=== PATIENT | female | born 1980 | race Caucasian/White ===

== ENCOUNTER 2020-12-09 19:41 | Inpatient (IN) | payer OTHER ==
[2020-12-09] MEDS: fentaNYL (PF) 50 MCG/ML 2 ML AMP IVP PRN ×2 (19:48→20:40)
[2020-12-09 19:54] LABS: Glucose,Whole Blood 150 mg/dL (75-99)
[2020-12-09] MEDS ORDERED: fentaNYL (PF) 50 MCG/ML 2 ML AMP IVP STA (19:59)
[2020-12-09 20:12] LABS: Anisocytosis Slight; Basophils # (A) 0.1 k/uL (0-0.2); Basophils % (A) 2 %; Eosinophils # (A) 0.1 k/uL (0-0.7); Eosinophils % (A) 2 %; HCT 41.7 % (34.0-46.0); HGB 13.8 gm/dL (11.4-16.0); Lymphocytes # (A) 1.3 k/uL (1.0-4.8); Lymphocytes % (A) 27 %; MCH 38.5 pg (25.0-35.0); MCHC 33.2 g/dL (31.0-37.0); MCV 115.8 fL (80.0-100.0); Macrocytosis Marked; Mean Platelet Volume 7.1; Monocytes # (A) 0.3 k/uL (0-1.0); Monocytes % (A) 7 %; Neutrophils % (A) 61 %; Platelet Count 241 k/uL (150-450); RDW 17.6 % (11.5-15.5); WBC 4.9 k/uL (3.8-10.6)
[2020-12-09 20:22] LABS: ALT 157 U/L (4-34); AST 473 U/L (14-36); African American GFR (CKD) >90 (>60 ml/min/1.73 sqM); Albumin 4.6 g/dL (3.5-5.0); Alkaline Phosphatase 155 U/L (38-126); Anion Gap 15 mmol/L; Blood Urea Nitrogen 7 mg/dL (7-17); Calcium 10.4 mg/dL (8.4-10.2); Carbon Dioxide 24 mmol/L (22-30); Chloride 100 mmol/L (98-107); Glucose 116 mg/dL (74-99); Non-African American GFR(CKD) >90 (>60 ml/min/1.73 sqM); Potassium 3.5 mmol/L (3.5-5.1); Sodium 139 mmol/L (137-145); Total Protein 7.3 g/dL (6.3-8.2)
[2020-12-09 20:24] LABS: Alcohol 138 mg/dL
[2020-12-09 20:28] LABS: Partial Thromboplastin Time 23.1 sec (22.0-30.0); Prothrombin Time 10.4 sec (9.0-12.0)
[2020-12-09 20:50] LABS: HCG,Qualitative Serum Not Detected
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
[2020-12-09] MEDS ORDERED: SODIUM CHLORIDE 0.9% 1,000 ML IV STA (21:36)
[2020-12-09] MEDS ORDERED: MORPHINE SULFATE 4 MG/ML SYRINGE IVP STA (21:36)
[2020-12-09] MEDS ORDERED: IBUPROFEN 400 MG TAB PO PRN (22:03)
[2020-12-09] MEDS ORDERED: ACETAMINOPHEN TAB 325 MG TAB PO PRN (22:03)
[2020-12-09] MEDS ORDERED: NALOXONE 0.4 MG/ML 1 ML VIAL IV PRN (22:03)
[2020-12-09] MEDS ORDERED: ONDANSETRON 4 MG/2 ML VIAL IVP PRN (22:03)
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
[2020-12-09] MEDS ORDERED: LORazepam 2 MG/ML INJ IV PRN ×3 (22:22)
[2020-12-09] MEDS ORDERED: THIAMINE 100 MG/ML 2 ML VIAL IM STA (22:22)
[2020-12-09 22:53] LABS: Appearance,Urine Cloudy (Clear); Bilirubin,Urine Negative (Negative); Blood,Urine Negative (Negative); Color,Urine Yellow; Glucose,Urine (UA) Negative (Negative); Ketones,Urine Negative (Negative); Leukocyte Esterase,Urine Negative (Negative); Mucus,Urine Rare /hpf; Nitrite,Urine Positive (Negative); PH, Urine 7.5 (5.0-8.0); Protein,Urine Trace (Negative); RBC,Urine 10 /hpf (0-5); Squamous Epithelial Cell,Urine 32 /hpf (0-4); Urobilinogen,Urine <2.0 mg/dL (<2.0); WBC,Urine 4 /hpf (0-5)
[2020-12-09 23:02] LABS: Amphetamine Screen,Urine Detected (NotDetected); Barbiturate Screen,Urine Not Detected (NotDetected); Benzodiazepines Screen,Urine Not Detected (NotDetected); Cocaine Screen,Urine Not Detected (NotDetected); Methadone Screen, Urine Not Detected (NotDetected); Opiate Screen,Urine Detected (NotDetected); Oxycodone Screen, Urine Not Detected (NotDetected); Phencyclidine Screen,Urine Not Detected (NotDetected); Tricyclic Antidepressant,Urine Not Detected (NotDetected); Urn Cannabinoid Scrn Detected (NotDetected)
[2020-12-09 23:06] LABS: Specific Gravity,Urine >1.050 (1.001-1.035)
[2020-12-09] MEDS: THIAMINE 100 MG TAB PO SCH (23:22)
[2020-12-10] MEDS ORDERED: NICOTINE 14MG/24HR PATCH TRANSDERM ONE (00:44)
[2020-12-10] MEDS: HEPARIN SODIUM,PORCINE/PF 5,000 UNIT/0.5 ML SYRINGE SQ SCH ×3 (00:46→16:47)
[2020-12-10] MEDS: MORPHINE SULFATE 4 MG/ML SYRINGE IV PRN ×4 (00:46→16:29)
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
[2020-12-10 05:53] VITALS: RESP 18
[2020-12-10] MEDS ORDERED: LOSARTAN 25 MG TAB PO SCH (09:00)
[2020-12-10] MEDS ORDERED: NICOTINE 14MG/24HR PATCH TRANSDERM SCH (09:00)
[2020-12-10] MEDS ORDERED: KETOROLAC 15 MG/ML 1 ML VIAL IVP PRN (09:12)
[2020-12-10] MEDS: SODIUM CHLORIDE 0.9% 1,000 ML IV SCH ×2 (10:11→16:47)
[2020-12-10] MEDS: THIAMINE 100 MG TAB PO SCH (10:18)
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
--- NOTE | 2020-12-10 12:52 | P.PN ---
Progress Note - Text Progress Note Date: 12/10/20 Transfer line communication performed with Dr. Arlette Reid [facility], [place], [place]. Patient accepted for transfer for acute sternal fracture with telemetry.
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
[2020-12-10] MEDS ORDERED: cloNIDine HCL 0.2 MG TAB PO STA (14:15)
[2020-12-10 15:14] VITALS: BP 137/93; PULSE 82; TEMP 98.1
--- NOTE | 2020-12-16 16:26 | CONS ---
CONSULTATION DATE OF SERVICE: 12/10/20 I have seen, examined, and agree with the midlevel's findings. MMODL / IJN: [id number] / [phone]
== END 2020-12-10 17:21 | disposition other institution (70) | DRG 566 ==
LOC: EC 19:41 → 4SSUR 22:03
PROVIDERS: ADMIT Surgery Plastic and Reconstructive Surgery; ATTEND Surgery Plastic and Reconstructive Surgery
DX: S22.22XA Fracture of body of sternum, initial encounter for closed fracture (principal); V43.62XA Car passenger injured in collision with other type car in traffic accident, initial encounter; Y92.410 Unspecified street and highway as the place of occurrence of the external cause; Y90.6 Blood alcohol level of 120-199 mg/100 ml; I10 Essential (primary) hypertension; F17.200 Nicotine dependence, unspecified, uncomplicated; F10.129 Alcohol abuse with intoxication, unspecified; F15.10 Other stimulant abuse, uncomplicated; R74.01 Elevation of levels of liver transaminase levels; Z20.822 Contact with and (suspected) exposure to COVID-19; Z79.899 Other long term (current) drug therapy; Z88.2 Allergy status to sulfonamides; Z88.8 Allergy status to other drugs, medicaments and biological substances; Z82.49 Family history of ischemic heart disease and other diseases of the circulatory system
CPT/HCPCS: 36415; 70450; 71045; 71260; 72125; 72170; 74177; 80053; 80306; 80320; 81001; 84484; 84703; 85025; 85610; 85730; 86850; 86900; 86901; 87635; 93005; 93306; 96374; 96375; 99285